=== PATIENT | male | born 1980 | race Hispanic/Latino ===

== ENCOUNTER 2018-09-05 20:39 | Emergency (ER) | payer OTHER ==
[~2018-09-05] VITALS: Ht 167.6 cm; Wt 90.0 kg
[~2018-09-05 20:39] MED LIST: AMOXICILLIN500 MG PO; NAPROSYN500 MG PO; NO MEDS
[2018-09-05] MEDS ORDERED: NAPROSYN500 MG PO (21:48)
[2018-09-05 21:59] VITALS: BP 118/60
== END 2018-09-05 21:59 | disposition home or self-care (01) | DRG 103 ==
LOC: ED 20:39
DX: R51 Headache (principal); S33.5XXA Sprain of ligaments of lumbar spine, initial encounter; R42 Dizziness and giddiness; V49.49XA Driver injured in collision with other motor vehicles in traffic accident, initial encounter; Y92.410 Unspecified street and highway as the place of occurrence of the external cause